=== PATIENT | female | born 1940 | race Caucasian/White ===

== ENCOUNTER → 2016-07-02 | Outpatient (CLI) | payer MEDICARE ==
[~2016-07-02] MED LIST: ATORVASTATIN CA80 MG PO; BACTRIM DS 8001 TAB PO; CARDIZEM LA360 MG PO; CEPHALEXIN500 MG PO; DIFLUCAN150 MG PO; FUROSEMIDE 20MG20 MG PO; GABAPENTIN100 M1 PO; HYDROCORTISONE2.5% TP; KEFLEX 500MG.500 MG PO; LANOXIN 0.120.125 MG PO; LASIX20 MG PO; LISINOPRIL40 MG PO; NOMEDS XX
== END ==
LOC: LAB 14:33
DX: S91.002A Unspecified open wound, left ankle, initial encounter (principal)

== ENCOUNTER → 2017-02-20 | Outpatient (CLI) | payer MEDICARE, MEDICAID | LOC: LAB 15:57 | DX: I89.0 Lymphedema, not elsewhere classified (principal) ==

== ENCOUNTER → 2017-04-22 | Day surgery (SDC) | payer MEDICARE, MEDICAID ==
[~2017-04-22] MED LIST changes: +METOPROLOL SUC100 M1 PO; +XARELTO20 MG PO
[2017-04-22 11:22] LABS: HEMOGLOBIN 10.8 g/dL (12.2-16.2); LYMPH # 2.1 K/mm3 (0.7-4.5); LYMPH % 24.4 % (10-50.0)
[2017-04-22 11:25] LABS: BUN 20 mg/dL (7-18)
[2017-04-22 11:26] LABS: GFR (ESTIMATED) 54 ML/MIN (59-)
--- NOTE | 2017-04-22 12:56 | RADIOLOGY REPORT PS360 ---
CARDIAC CATHETERIZATION DATE OF CATHETERIZATION:04/22/2017 11:14 AM PROCEDURES: 1. Left heart catheterization 2. Left ventriculogram 3. Selective coronary angiogram 4. Drug-eluting stent deployment to the proximal LAD INDICATION FOR TEST: 1. Coronary artery disease 2. Refusal of surgeon to take patient to bypass surgery 3. Recalcitrant angina class IV Informed consent was obtained prior to the procedure. COMPLICATIONS: None ESTIMATED BLOOD LOSS: Less than 10 ml. TECHNIQUE: One percent lidocaine used to anesthetize the right anterior aspect of the wrist. The right radial artery was accessed via the Seldinger technique. A 6 Hebrew sheath was placed in the right radial artery. 2.5 mg of verapamil, 800 mcg of nitroglycerin and 5000 U Heparin were given through the arterial sheath. An additional 2000 units of heparin was administered intravenously giving an ACT of 278. An additional 2000 units of heparin was administered intravenously.An [employer] left guide catheter was used intubate the left main artery and a choice PT extra-support was placed in the mid LAD. A 3 mm x 8 mm noncompliant balloon was deployed in the proximal LAD at 20 hair. Following this stenting could not be performed. An additional 3 mm x 15 mm noncompliant balloon was deployed at 20 hair further predilated the lesion. Following this a 3 mm x 15 mm resolute Michael stent was deployed at 20 hair reducing the critical lesion to 0%. Excellent angiographic results were obtained after the procedure with VALARIE-3 flow present before and after the procedure. At the end of procedure sheath was removed good hemostasis was achieved using TR banding patient transferred to the postop holding area in stable condition ANGIOGRAPHIC RESULTS: 1. The left main artery has a distal 30-40% stenosis 2. The left anterior descending artery has a critical proximal 90% calcified stenosis followed by an additional mid vessel 90% stenosis at the junction of the diagonal artery followed by additional 90% mid LAD lesions 3. Ramus intermedius has a proximal 80-90% stenosis 4. The circumflex artery is a dominant vessel and has mid vessel 80% stenoses and distal 70% stenosis 5. The right coronary artery evaluated 6. The SEAY ventriculogram reveals not obtained 7. The left ventricular end-diastolic pressure not obtained IMPRESSION: 1. Critical proximal LAD lesion with severe mid LAD lesion 2. Successful stenting the proximal LAD critical stenosis reduced to 0% with 1 drug-eluting stent 3. Persistent severe stenosis in the mid LAD ramus intermedius and circumflex artery as described above PLAN: 1. Brilinta and aspirin 2. Restart Xarelto for atrial fibrillation 3. Cardiac rehabilitation 4. Avoidance of tobacco products 5. Control atrial fibrillation rate 6. LDL less than 55
[2017-04-22 17:20] VITALS: BP 131/113
[2017-04-22 17:51] VITALS: BP 131/113
[2017-04-22 18:00] VITALS: BP 167/103
[2017-04-22 22:00] VITALS: BP 139/96
[2017-04-23 02:00] VITALS: BP 109/85
[2017-04-23 04:00] VITALS: BP 125/94
[2017-04-23 09:00] VITALS: BP 136/88
[2017-04-23 11:00] VITALS: BP 146/86
== END ==
LOC: CATHLAB 04-19 09:00
PROVIDERS: Internal Medicine
PROC: B2111ZZ Fluoroscopy of Multiple Coronary Arteries using Low Osmolar Contrast (ICD-10-PCS; 2017-04-22)
PROC: B2151ZZ Fluoroscopy of Left Heart using Low Osmolar Contrast (ICD-10-PCS; 2017-04-22)
PROC: 027034Z Dilation of Coronary Artery, One Artery with Drug-eluting Intraluminal Device, Percutaneous Approach (ICD-10-PCS; 2017-04-22)
PROC: 4A023N7 Measurement of Cardiac Sampling and Pressure, Left Heart, Percutaneous Approach (ICD-10-PCS; principal; 2017-04-22 10:15)
DX: I25.119 Atherosclerotic heart disease of native coronary artery with unspecified angina pectoris (principal); Z72.0 Tobacco use; I11.9 Hypertensive heart disease without heart failure
CPT/HCPCS: C1725; C1760; C1769; C1876; J1644; Q9967